=== PATIENT | male | born 1955 | race Caucasian/White ===

== ENCOUNTER 2018-02-15 03:23 | Emergency (ER) | payer BC, OTHER ==
--- NOTE | 2018-02-15 03:52 | PDOC ---
History of Present Illness - History of Present Illness Initial Comments: 02/15/18 03:48 62 yo M w a hx of T2DM, HTN, HLD was brought into the ED by EMS after a witnessed cardiac arrest. The story goes he got up in the middle of the night to goto the bathroom and then he said to his he doesn't feel well and needs to goto the hospital. The then called EMS and while she was on the phone the patient fell down and fell into cardiac arrest. EMS got there within a half hour. They intubated him on scene and started performing ACLS. He achieved ROSC at one point but then fell into PEA and asystole. His blood glucose in the field was 337. He received 8 rounds of Epi, 2 bicarbs, and calcium. He never received ROSC while he was in the ED. US showed no cardiac movement. He was pronounced at 3:33 AM. Case discussed with [employer] Adonay Connors. The case was declined. - [id number]. 02/15/18 04:14 02/15/18 04:29 <Joseph Rawls - Last Filed: 02/15/18 05:50> - History of Present Illness Initial Comments: 02/15/18 22:25 correction to above: it was the pts mother that witnessed evyrthing. the pt is not and lives with the mother. <Luke Larsen - Last Filed: 02/15/18 22:27> - General Stated Complaint: CARDIAC ARREST Time Seen by Provider: 02/15/18 03:39 Past History <Joseph Rawls - Last Filed: 02/15/18 05:50> <Luke Larsen - Last Filed: 02/15/18 22:27> - Past Medical History Allergies/Adverse Reactions: Allergies Allergy/AdvReac Type Severity Reaction Status Date / Time No Allergy Information Allergy Verified 02/15/18 05:16 Available Home Medications: Ambulatory Orders Unobtainable 02/15/18 *Physical Exam - Vital Signs Last Vital Signs Temp Pulse Resp BP Pulse Ox 0 L 02/15/18 03:23 02/15/18 03:23 <Luke Larsen - Last Filed: 02/15/18 22:27> *DC/Admit/Observation/Transfer - Discharge Dispostion Decision to Admit order: No <Joseph Rawls - Last Filed: 02/15/18 05:50> - Discharge Dispostion Decision to Admit order: No <Luke Larsen - Last Filed: 02/15/18 22:27> Diagnosis at time of Disposition: Cardiac arrest - Discharge Dispostion Condition at time of disposition:
--- NOTE | 2018-02-15 04:02 | PDOC ---
Attending Attestation - Resident Resident Name: Joseph Rawls - ED Attending Attestation I have performed the following: I have examined & evaluated the patient, The case was reviewed & discussed with the resident, I agree w/resident's findings & plan, Exceptions are as noted - HPI HPI: 02/15/18 04:38 62y M hx of dm, htn, hl presents with cardiac arrest. per family pt was fine this morning, this evening pt woke from sleep, said he didnt feel well and his mother who he lives with, called EMS, and then pt arrested. EMS arrived on scene and pt was in PEA. pt was intubated, ACLS was started pt was given epi x5 compesesions with clara device, and give bicarb, at one point he had ROSC briefly but was in PEA primarily. BGM 330s per EMS. Upon arrival pts pupils were fixed at 5mm nonreactive to light, ett in place with breathsounds bilaterally. No improvement from PEA with multiple rounds of ACLS, calcium cl, bicarb. no cardiac activity on bedside echo. pt was pronounced at 3:33. Mother aneesh aguila was notified immediately after. Pts sister and brother in law were also present. attempted to notify dr. Walker - no call back yet. ME was notifed, case was declined by ME. exam: Head: atraumatic ENT: ett in place Card: no cardiac activity abd: distended, no signs of ecchymosis ext: trace edema, no fistulas noted cardiac arrest of unkonwn etiology - Physicial Exam PE: 02/15/18 22:17 see above - Critical Care Time Total Critical Care Time: 45 Critical Care Statement: The care of this patient involved high complexity decision making to prevent further life threatening deterioration of the patient 's condition and/or to evaluate & treat vital organ system(s) failure or risk of failure. - Medical Decision Making 02/15/18 05:[address] Nicholson - covering for Dr. Walker. she will notify dr. walker regarding his and for him to complete certifiate
[2018-02-15 04:14] VITALS: BP 30/27; PULSE 0; BMI 37.9
== END 2018-02-15 05:04 | disposition expired ==
LOC: JER 03:23
DX: I46.9 Cardiac arrest, cause unspecified (principal); E11.9 Type 2 diabetes mellitus without complications; I10 Essential (primary) hypertension; E78.5 Hyperlipidemia, unspecified
CPT/HCPCS: 82962; 99285-25